=== PATIENT | male | born 1985 | race Caucasian/White ===

== ENCOUNTER 2019-09-09 17:23 | Emergency (ER) | payer MEDICAID, OTHER ==
[~2019-09-09] VITALS: Ht 177.8 cm; Wt 93.9 kg
[2019-09-09 17:34] VITALS: BP 135/88
--- NOTE | 2019-09-09 17:44 | NUR ---
C/O LARGE HEMATOMA TO OCCIPITAL REGION X APPROX 0200. PT STATES HE IS A VERY HEAVY SLEEPER AND THINKS HE FELL WHILE WALKING THIS AM IN HIS HOUSE. PT WOKE UP ON THE FLOOR AT APPROX 0600. PAIN TO SITE 8/10. C/O OCCASIONAL DOUBLE VISION. DENIES DIZZINESS OR N/V. PT ALERT AND AWAKE, A0X4, AMBULATORY WITH STEADY GAIT. PMH- 1987 SKIN LESION REMOVAL TO SCALP
--- NOTE | 2019-09-09 17:49 | NUR ---
ACCU CHECK 93
[2019-09-09] MEDS ORDERED: HYDROcodone/APAP 5/325 MG 1 TAB TAB PO ONE (18:00)
[2019-09-09] MEDS ORDERED: ONDANSETRON 4 MG ODT PO ONE (18:00)
--- NOTE | 2019-09-09 18:07 | NUR ---
NORCO AND ZOFRAN PO ADMINISTERED
--- NOTE | 2019-09-09 18:09 | NUR ---
PT TO CT SCAN VIA WHEELCHAIR
--- NOTE | 2019-09-09 18:18 | NUR ---
PT RETURNED FROM CT
--- NOTE | 2019-09-09 18:54 | NUR ---
NADR, PAIN 07/02
[2019-09-09 18:55] VITALS: BP 139/72
--- NOTE | 2019-09-09 18:55 | NUR ---
Patient discharged with v/s stable. Written and verbal after care instructions given and explained. Patient alert, oriented and verbalized understanding of instructions. Ambulatory with steady gait. All questions addressed prior to discharge. ID band removed. Patient advised to follow up with PMD. Rx of IBUPROFEN given. Patient educated on indication of medication including possible reaction and side effects. Opportunity to ask questions provided and answered. PT ISNTURCTED NEGATIVE CT SCAN, GIVEN COPY OF RESULTS
== END 2019-09-09 18:55 | disposition home or self-care (01) ==
LOC: MED 17:23
DX: S09.90XA Unspecified injury of head, initial encounter (principal); S00.03XA Contusion of scalp, initial encounter; X58.XXXA Exposure to other specified factors, initial encounter; Y93.89 Activity, other specified; Y92.89 Other specified places as the place of occurrence of the external cause; Y99.8 Other external cause status
CPT/HCPCS: 70450; 99284; Q0162